=== PATIENT | female | born 1965 | race Two or more races ===

== ENCOUNTER 2021-11-21 21:17 | Emergency (ER) | payer MEDICAID, OTHER ==
[~2021-11-21] VITALS: Ht 152.4 cm; Wt 68.0 kg
[2021-11-21] MEDS ORDERED: LABETALOL HCL 5 MG/ML 4ML SYRINGE IV ONE (22:15)
[2021-11-21 22:36] LABS: Eosinophils # (auto) 0 10 ^3/uL (0-0.8); Eosinophils % (auto) 0.4 % (0.0-7.0); Lymphocytes # (auto) 1.5 10 ^3/uL (0.4-5.4); Mean Corpuscular Hgb Conc. 31.9 g/dL (32.0-36.0); Monocytes # (auto) 0.4 10 ^3/uL (0-1.3); Monocytes % (auto) 3.8 % (0.0-12.0); Neutrophils # (auto) 7.9 10 ^3/uL (1.6-8.6)
[2021-11-21 22:38] LABS: Basophils # (auto) 0 10 ^3/uL (0-0.2); Basophils % (auto) 0.5 % (0.0-2.0); Hematocrit 40.6 % (36.0-46.0); Lymphocytes % (auto) 15.4 % (10.0-50.0); Mean Corpuscular Hemoglobin 25.6 pg (28.0-32.0); Mean Corpuscular Volume 80.3 fL (80.0-100.0); Neutrophils % (auto) 79.9 % (37.0-80.0); Nucleated Red Blood Cells % 0.1 %; Red Blood Cells 5.06 10^6/uL (4.0-5.20); Red Cell Distribution Width 13.1 % (11.8-14.3); White Blood Cell 9.9 10^3/uL (4.4-10.8)
[2021-11-21 22:48] LABS: Albumin 4.5 g/dL (3.4-5.0); BUN/Creatinine Ratio 18.6; Calcium 9.2 mg/dL (8.5-10.1); Potassium 3.5 mmol/L (3.5-5.1)
[2021-11-21 22:51] LABS: Bilirubin, Total 0.7 mg/dL (0.2-1.0); Total Protein 8.5 g/dL (6.4-8.2)
[2021-11-21 23:01] LABS: Urine Bacteria NONE SEEN /hpf (None Seen); Urine Blood Negative /uL (Negative); Urine Specific Gravity 1.002 (1.001-1.035); Urine WBC 2 /hpf (0 - 5)
[2021-11-22 05:46] VITALS: BP 132/69
== END 2021-11-22 05:48 | disposition home or self-care (01) ==
LOC: ER 21:17
DX: I10 Essential (primary) hypertension (principal)
CPT/HCPCS: 36415; 71045; 80053; 81001; 83880; 84484; 85025; 93005; 96374; 99285; J3490

== ENCOUNTER 2022-03-23 00:29 | Emergency (ER) | payer MEDICAID ==
[~2022-03-23] VITALS: Ht 137.2 cm; Wt 63.7 kg
[2022-03-23 05:40] VITALS: BP 146/93
== END 2022-03-23 05:48 | disposition home or self-care (01) ==
LOC: ER 00:29
DX: I10 Essential (primary) hypertension (principal)